=== PATIENT | male | born 1945 | race Hispanic/Latino ===

== ENCOUNTER 2018-11-11 09:58 | Outpatient (CLI) | payer MEDICARE | END 2018-11-11 09:59 | disposition home or self-care (01) | LOC: PAT 09:58 ==

== ENCOUNTER 2018-11-18 06:04 | Day surgery (SDC) | payer MEDICARE ==
[2018-11-09 10:29] VITALS: BMI 33.6
[2018-11-18] MEDS ORDERED: Iohexol 240 (50 ml) ONE (07:56)
[2018-11-18] MEDS ORDERED: cefTRIAXone (Rocephin) 1 gm Inj ONE (07:56)
[2018-11-18] MEDS ORDERED: Midazolam 2 MG/2 ML VIAL ONE (08:18)
[2018-11-18] MEDS ORDERED: Propofol 10 mg/ml Inj (20 ML) ONE (08:18)
[2018-11-18] MEDS ORDERED: Oxycodone/Acetaminophen 5/325 mg Tab PO PRN (08:23)
[2018-11-18] MEDS ORDERED: Ciprofloxacin 400mg/200ml D5W 400 MG/200 ML BAG IVPB STA (08:23)
[2018-11-18] MEDS ORDERED: Etomidate 20 mg/10ml Inj IV ONE (08:24)
[2018-11-18] MEDS ORDERED: cefTRIAXone (Rocephin) 1 gm Inj IVPB ONE (08:34)
[2018-11-18] MEDS ORDERED: Gentamicin 80 mg/2mL Inj. IVPB ONE (08:41)
[2018-11-18] MEDS ORDERED: Gentamicin 80 mg in 0.9% NS 80 MG/100 ML BAG IVPB ONE (08:42)
[2018-11-18] MEDS ORDERED: HYDROmorphone 0.5 mg/0.5 ml ISec IVP PRN (09:15)
[2018-11-18] MEDS ORDERED: Ciprofloxacin 400mg/200ml D5W IVPB ONE (09:45)
[2018-11-18] MEDS ORDERED: Ciprofloxacin 400mg/200ml D5W 400 MG/200 ML BAG IVPB ONE (09:47)
[2018-11-18 10:21] VITALS: RESP 18; TEMP 97; O2SAT 99
[2018-11-18 11:07] VITALS: BP 128/63; PULSE 79
--- NOTE | 2018-11-25 13:32 | PN ---
DATE: 11/18/2018 This is an immediate postoperative note on the patient, Chandler Fernandez. See the history and physical and operative note. The patient is status post a cystoscopy and an internal optical urethrotomy and had an indwelling Pan catheter. There were no complications. He is in recovery room. Vital signs were within normal limits. I explained all the findings of the operation to the patient. PLAN: We did not do any today and that we are planning on doing it next Friday and then further plans will follow. Adam Jovel MD
--- NOTE | 2018-11-25 13:35 | OP ---
PROCEDURE DATE: 11/18/2018 PREOPERATIVE DIAGNOSES: Urinary retention, voiding dysfunction, hematuria, elevated prostatic specific antigen. POSTOPERATIVE DIAGNOSES: Urinary retention, voiding dysfunction, hematuria, elevated prostatic specific antigen, a catheter that was not in the right location, a faulty catheter, and a bladder neck contracture/abnormality. PROCEDURE: Cystoscopy, an internal optical urethrotomy, and GreenLight laser fiber was opened and GreenLight laser energy was used and we did not do the procedure as planned, instead we got opened up the urethra and made sure that we had an indwelling Pan catheter. SURGEON: Adam Jovel MD ESTIMATED BLOOD LOSS: Less than 10 mL. COMPLICATIONS: There were no complications and he had an indwelling Pan catheter. INDICATIONS: See history and physical for further details. A very pleasant gentleman, who is very pleasant about all the matters, but he is very somewhat difficult in terms of compliance. It turns out it took a long time to get a Pan, to get him to go to the doctor. His creatinine was above 7, now his creatinine is below 2. He has lost of 30 pounds of water weight He was walking on a very bad medical condition. Now he is much better with an indwelling Pan, but he was here today and we had arranged and our findings today as such that the catheter was probably not in all the way somewhat because it was draining urine. But now I am finding a bladder neck contracture and this abnormal prostate tissue can see in the body of the report. Basically, we opened it, we dilated, but after doing that, did not feel comfortable to proceed with a GreenLight laser. From an infection standpoint and a bleeding standpoint, . So, we terminated the procedure. We then did a GreenLight laser, we never opened the fiber. The patient tolerated the procedure well and we removed the Pan catheter. There were no complications. DESCRIPTION OF PROCEDURE: After obtaining informed consent, the patient was placed on the table. Routine monitors were placed. Time-out was called to confirm the patient positioning. We prepared for a GreenLight laser. We had made the arrangements. We now introduced the cystoscope via the urethra. We introduced a visual obturator. After urethra was normal, we had removed the old Pan, again came in retention with an indwelling Pan. Antibiotic prophylaxis used. We now introduced the cystoscope, now we got near the veru, so the veru only is really essentially blocked and lot of bleeding, and we cannot get into the urethra. Looking at it, multiple pictures were taken. Looked to me like the Pan catheter is not all the way in and portion of the scarring and there was lot of erythema from what looks like a balloon around the area of the bladder neck. We . At this point, I inspected more carefully. I did , did an internal optical urethrotomy. We used an ureteral catheter, we got just into the bladder, and then we cut anteriorly. Now, we inspected further and it looks like he has visually occlusive prostate, but lot of scar tissue as well. At this point, I feel like it would be best for the patient to terminate the procedure in terms of risk of bleeding and infection, particularly manipulating indwelling Pan catheter as an external and worried about infection. So, at this point what we do is just convert over to an [place] tip catheter leaving for drainage. The patient tolerated the procedure well without complications. This is repeat of a dictation. We will get a cysto, IOU on the patient, and the plan will be to admit him next week. Adam Jovel MD
--- NOTE | 2018-11-25 20:59 | HP ---
DATE OF EXAM: 11/18/2018 UROLOGY NOTE REASON FOR ADMISSION: Urinary retention. HISTORY OF PRESENT ILLNESS: Mr. Fernandez is a very pleasant gentleman. He has an indwelling Pan catheter. His previous exam shows his creatinine is above 7, I believe. Now, it stands at about 1.8 or so. He presented in complete bharati urinary retention. I spoke to the patient many times. He is very pleasant about the matter, but for some reason is not attentive to his own care. He presented with tremendous weight gain, tremendous elevation of BUN and creatinine. Just not feeling well for quite sometime. Meanwhile, he has now lost he says 30-40 pounds of water. His creatinine is down to normal. He feels much much much better. He is here today for a GreenLight laser TURP that we have made arrangements, , see further notes on the addendum, but we ended up not being able to do it. ASSESSMENT: Urethral and bladder neck strictures. PAST MEDICAL AND SURGICAL HISTORY: As listed. Medical clearance obtained. REVIEW OF SYSTEMS: As listed above. MEDICATIONS: Tolerated. PHYSICAL EXAMINATION: GENERAL: A well-nourished male, in no apparent distress. VITAL SIGNS: Noted within normal limits and included in the chart. LUNGS: Clear. HEART: S1 and S2. ABDOMEN: Overall soft and nontender. GENITOURINARY: The Pan catheter appears to be in good location. See below addendum. DIAGNOSES: Gross hematuria, voiding dysfunction, renal failure, and urinary retention. ASSESSMENT AND PLAN: In summary at this point, the plan is; 1. Antibiotic prophylaxis. 2. We will consider doing that laser transurethral resection of the prostate. Further vaporization with GreenLight laser, we are only doing further resection of the prostate and then further plans will follow. 3. Antibiotic prophylaxis. Risks and benefits were explained to the patient, ejaculatory dysfunction, the fact that may be the operation will not work, the fact that his creatinine can go back up. I had a very long talk with the patient about the risks, the benefits. I think the benefits outweigh the risks from the procedure. ADDENDUM TO THE NOTE: Previous operative note, it turns out that the patient's Pan catheter was not in place well and we ended up needing to do a dilation and an internal optical urethrotomy setup, and we ended up not being able to feel comfortable, see the body of operative note. So, we ended up not being able to do the GreenLight laser today except we just dilated and did an internal optical urethrotomy, see in the operative note. Make an addendum to this note. The plan is to discharge the patient home with a Pan and then we will make arrangements for another GreenLight for next week. Adam Jovel MD
== END 2018-11-18 12:00 | disposition home or self-care (01) ==
LOC: SDS 06:04
PROVIDERS: ATTEND Urology
DX: N32.0 Bladder-neck obstruction (principal); R31.9 Hematuria, unspecified; R33.9 Retention of urine, unspecified; R97.20 Elevated prostate specific antigen [PSA]
CPT/HCPCS: 52276; C1758; C1769; J0696; J0744; J1170; J1580 ×2; J2001; J2250; J2405; J2765; J3010; J7120; Q9966